=== PATIENT | male | born 1955 | race Caucasian/White ===

== ENCOUNTER 2019-06-10 05:26 | Day surgery (SDC) | payer MEDICAID ==
[2019-06-08 14:41] LABS: CLARITY,URINE CLEAR (Clear); COLOR,URINE STRAW (Yellow); GLUCOSE, URINE NEGATIVE (Neg); KETONES,URINE NEGATIVE (Neg); LEUKOCYTE ESTERASE ,URINE NEGATIVE (Neg); NITRITES, URINE NEGATIVE (Neg); OCCULT BLOOD,URINE NEGATIVE (Neg); PH,URINE 6.5 (4.8-8.0); PROTEIN,URINE NEGATIVE (Neg); UROBILINOGEN,URINE 0.2 E.U/dL (0.2-1.0)
[2019-06-08 14:43] LABS: UA COLLECTION TYPE VOIDED
[2019-06-08 14:43] LABS: BASOPHILS # (AUTO) 0.1 X10'3 (0-0.2); BASOPHILS % (AUTO) 0.9 % (0-1); EOSINOPHILS # (AUTO) 0.1 X10'3 (0-0.9); EOSINOPHILS % (AUTO) 1.7 % (0-6); LYMPHOCYTES # (AUTO) 2.1 X10'3 (1.1-4.8); LYMPHOCYTES % (AUTO) 29.6 % (21-51); MEAN CORPUSCULAR HEMOGLOBIN 29.9 PG (27.0-31.0); MEAN CORPUSCULAR HGB CONC 34.5 g/dL (33.0-36.5); MEAN CORPUSCULAR VOLUME 86.8 FL (78-98); MEAN PLATELET VOLUME 7.5 FL (7.4-10.4); MONOCYTES # (AUTO) 0.7 X10'3 (0-0.9); MONOCYTES % (AUTO) 9.4 % (2-12); NEUTROPHILS # (AUTO) 4.2 X10'3 (1.8-7.7); NEUTROPHILS % (AUTO) 58.4 % (42-75); PRE OP HEMATOCRIT 41.6 % (42.0-52.0); PRE OP HEMOGLOBIN 14.3 g/dL (14.0-17.9); PRE OP PLATELET COUNT 291 X10'3 (140-440); RED BLOOD COUNT 4.79 X10'6 (4.70-6.10); RED CELL DISTRIBUTION WIDTH 12.9 % (11.5-14.5)
[2019-06-08 14:55] LABS: ALKALINE PHOSPHATASE 67 IU/L (46-116); BLOOD UREA NITROGEN 14 MG/DL (7-18); BUN/CREATININE RATIO 16.5 (5.4-32.0); CALCIUM 9.3 MG/DL (8.5-10.1); CHLORIDE 104 MMOL/L (99-107); CREATININE 0.85 MG/DL (0.60-1.10); PRE OP ALT 31 U/L (30-65); PRE OP ANION GAP 7 (8-16); PRE OP AST 16 U/L (10-37); PRE OP BILIRUB, TOTAL 0.4 MG/DL (0.0-1.0); PRE OP GLUCOSE 103 MG/DL (70-104); PRE OP POTASSIUM 4.2 MMOL/L (3.4-5.1); PRE OP SODIUM 141 MMOL/L (135-145); TOTAL CARBON DIOXIDE 30.2 MMOL/L (24-32); TOTAL PROTEIN 7.9 G/DL (6.4-8.2); eGFR > 90 ML/MIN
[2019-06-10] VITALS (17 sets, daily range): BP systolic 120–171; BP diastolic 68–103
[~2019-06-10] VITALS: Ht 170.2 cm; Wt 78.2 kg
[~2019-06-10 05:26] MED LIST: LOSA100T57 PO; MULT-933 PO; ringers solution, lacted 1,000 ML IV SCH
[2019-06-10] MEDS ORDERED: famotidine 10mg tablet PO ONE (05:30)
[2019-06-10] MEDS ORDERED: cefazolin/dext.iso 2gm/100ml 100 ML IV ONE (05:30)
[2019-06-10] MEDS ORDERED: LIDOcaine 1% (10mg/ml) 2ml vial ONE (05:46)
[2019-06-10] MEDS ORDERED: ceFAZolin 1000mg inj ONE ×2 (06:39→08:41)
[2019-06-10] MEDS ORDERED: BUPIVAcaine/PF 2.5 mg/ml (0.25%) 30ml vial ONE (06:39)
[2019-06-10] MEDS ORDERED: bacitracin 15gm ointment TP ONE ×2 (06:40→08:41)
[2019-06-10] MEDS ORDERED: BUPIVAcaine/PF 2.5mg/ml (0.25%) 10ml vial ONE (08:41)
[2019-06-10] MEDS ORDERED: sevoflurane 250ml liquid IH ONE (09:48)
[2019-06-10] MEDS ORDERED: fentaNYL/PF 50MCG/1 ML 2ML syringe ONE ×2 (10:01→10:51)
[2019-06-10] MEDS ORDERED: midazolam 2 mg/2 ml injection ONE (10:01)
[2019-06-10] MEDS ORDERED: rocuronium 10mg/ml inj IV ONE (10:03)
[2019-06-10] MEDS ORDERED: propofol inj 20 ML IV ONE (10:08)
[2019-06-10] MEDS ORDERED: LIDOcaine 2% (20mg/ml) 5ml vial ONE (10:08)
[2019-06-10] MEDS ORDERED: ketorolac trometh. 30mg/ml inj. ONE (10:10)
[2019-06-10] MEDS ORDERED: ondansetron/PF 4mg/2ml inj ONE (10:10)
[2019-06-10] MEDS ORDERED: dexamethasone sod phosphate 4mg/ml inj. ONE (10:10)
[2019-06-10] MEDS ORDERED: ringers solution, lacted 1,000 ML IV SCH (10:22)
[2019-06-10] MEDS ORDERED: morphine 4 MG/ML inj SYRINge IV PRN ×2 (10:25)
[2019-06-10] MEDS ORDERED: meperidine/PF 25mg/ml syringe IV PRN ×3 (10:25)
[2019-06-10] MEDS ORDERED: ondansetron/PF 4mg/2ml inj IV PRN (10:25)
[2019-06-10] MEDS ORDERED: proCHLORperazine 10 MG/2 ml inj IV PRN (10:25)
[2019-06-10] MEDS ORDERED: hydrALAZINE 20mg/ml inj. IV ONE (10:52)
--- NOTE | 2019-06-10 11:14 | NUR ---
Received from OR via [facility] , accompanied by Anesthesiologist DR ASHTON and report given by Anesthesiologist. PT DROWSY, DENIES PAIN, ABDOMEN W/2 LAP SITES W/BANDAIDS CDI. Addendum: 06/10/19 at 1130 by Deb Flores RN Amended: Links added.
--- NOTE | 2019-06-10 13:54 | NUR ---
BLADDER SCANNED PT POST VOID, 0 ML OF URINE IN BLADDER, D/C INSTRUCTIONS GIVEN AND GONE OVER W/PT AND PTS DAUGHTER WHOM VERBALIZE UNDERSTANDING. PT D/CD TO HOME VIA W/C TO PRIVATE VEHICLE W/O INCIDENT. Addendum: 06/10/19 at 1406 by Deb Flores RN Amended: Links added.
== END 2019-06-10 13:54 | disposition home or self-care (01) ==
LOC: PAS 05:26
PROVIDERS: ATTEND Surgery
DX: K40.91 Unilateral inguinal hernia, without obstruction or gangrene, recurrent (principal); K40.90 Unilateral inguinal hernia, without obstruction or gangrene, not specified as recurrent; K42.9 Umbilical hernia without obstruction or gangrene; D17.6 Benign lipomatous neoplasm of spermatic cord; I10 Essential (primary) hypertension; K21.9 Gastro-esophageal reflux disease without esophagitis; M19.90 Unspecified osteoarthritis, unspecified site; E66.9 Obesity, unspecified; Z68.27 Body mass index [BMI] 27.0-27.9, adult; Z96.641 Presence of right artificial hip joint; Z98.890 Other specified postprocedural states; Z79.899 Other long term (current) drug therapy; Z72.89 Other problems related to lifestyle; Z82.49 Family history of ischemic heart disease and other diseases of the circulatory system
CPT/HCPCS: 36415; 49650; 49651; 80053; 81003; 82948; 85025; C1781; J0360; J0690; J1100; J1885; J2001; J2175; J2250; J2405; J2704; J3010; J3490; J7120; A4215; A4314; A4618; A6258; A7000

== ENCOUNTER 2022-04-27 08:02 | Day surgery (SDC) | payer MEDICARE, MEDICAID ==
[2022-04-23 12:40] LABS: BASOPHILS % (AUTO) 0.8 % (0-1); EOSINOPHILS # (AUTO) 0.1 X10'3 (0-0.9); EOSINOPHILS % (AUTO) 2.4 % (0-6); LYMPHOCYTES # (AUTO) 1.7 X10'3 (1.1-4.8); LYMPHOCYTES % (AUTO) 33.8 % (21-51); MEAN CORPUSCULAR HEMOGLOBIN 29.1 PG (27.0-31.0); MEAN CORPUSCULAR HGB CONC 33.5 g/dL (33.0-36.5); MEAN CORPUSCULAR VOLUME 86.8 FL (78-98); MEAN PLATELET VOLUME 7.4 FL (7.4-10.4); MONOCYTES # (AUTO) 0.4 X10'3 (0-0.9); MONOCYTES % (AUTO) 8.3 % (2-12); NEUTROPHILS # (AUTO) 2.7 X10'3 (1.8-7.7); NEUTROPHILS % (AUTO) 54.7 % (42-75); PRE OP HEMATOCRIT 43.5 % (42.0-52.0); PRE OP HEMOGLOBIN 14.6 g/dL (14.0-17.9); PRE OP PLATELET COUNT 234 X10'3 (140-440); RED BLOOD COUNT 5.01 X10'6 (4.70-6.10); RED CELL DISTRIBUTION WIDTH 13.3 % (11.5-14.5)
[2022-04-23 14:02] LABS: ALBUMIN 3.9 G/DL (3.4-5.0); ALBUMIN/GLOBULIN RATIO 1.1 (1.1-1.5); ALKALINE PHOSPHATASE 62 IU/L (46-116); BLOOD UREA NITROGEN 16 MG/DL (7-18); BUN/CREATININE RATIO 18.8 (5.4-32.0); CALCIUM 9.4 MG/DL (8.5-10.1); CHLORIDE 104 MMOL/L (99-107); CREATININE 0.85 MG/DL (0.60-1.10); PRE OP ALT 32 U/L (30-65); PRE OP ANION GAP 11 (8-16); PRE OP AST 24 U/L (10-37); PRE OP BILIRUB, TOTAL 0.5 MG/DL (0.0-1.0); PRE OP GLUCOSE 101 MG/DL (70-104); PRE OP POTASSIUM 4.3 MMOL/L (3.4-5.1); PRE OP SODIUM 141 MMOL/L (135-145); TOTAL CARBON DIOXIDE 26.3 MMOL/L (24-32); TOTAL PROTEIN 7.6 G/DL (6.4-8.2); eGFR 90 ML/MIN
[2022-04-27] VITALS (9 sets, daily range): BP systolic 129–154; BP diastolic 76–105
[~2022-04-27] VITALS: Ht 170.2 cm; Wt 76.7 kg
[~2022-04-27 08:02] MED LIST changes: -MULT-933 PO; +ceFAZolin inj. 2,000 MG in dextrose 5%-water 100 ML IV ONE; +famotidine 20mg tablet PO ONE
[2022-04-27] MEDS ORDERED: ringers solution, lacted 1,000 ML IV SCH (08:30)
[2022-04-27] MEDS ORDERED: hydrALAZINE 20mg/ml inj. IV PRN (08:30)
[2022-04-27] MEDS ORDERED: morphine 2 MG/ML inj. syringe IV PRN (08:30)
[2022-04-27] MEDS ORDERED: labetalol 20mg/4ml (5mg/ml) syringe IV PRN (08:30)
[2022-04-27] MEDS ORDERED: ondansetron/PF 4mg/2ml inj IV PRN (08:30)
[2022-04-27] MEDS ORDERED: morphine 4 MG/ML inj SYRINge IV PRN (08:30)
[2022-04-27] MEDS ORDERED: fentaNYL/PF 50MCG/1 ML 2ML syringe IV PRN ×2 (08:30)
[2022-04-27] MEDS ORDERED: BUPIVAcaine/PF 5 mg/ml 10ml ONE (10:18)
[2022-04-27] MEDS ORDERED: fentaNYL/PF 50MCG/1 ML 2ML syringe ONE (10:23)
[2022-04-27] MEDS ORDERED: LIDOcaine 0.5% (5mg/ml) 50ml vial ONE (10:24)
[2022-04-27] MEDS ORDERED: MIDAZolam 1 MG/ML 5ML VIAL ONE (10:24)
--- NOTE | 2022-04-27 11:15 | NUR ---
Received from OR via [facility], accompanied by Anesthesiologist YASH and report given by Anesthesiolgist. PT IS AWAKE AND ALERT, FOLLOWING COMMANDS AND ANSWERING QUESTIONS APPROPRIATELY. PT PLACED ON BEDSIDE MONITOR, VSS. PT IS BRADYCARDIC WITH HR IN HIGH 40'S- MID 50'S, MD IS AWARE AND PT STATES THIS IS NOT UNCOMMON FOR HIM. PT ON RA AND TOLERATING WITH O2 SAT > 96%. PT HAS 20G PIV TO LEFT HAND WITH LR INFUSING ORDERED. PT HAS DRSG TO RT HAND THAT IS CDI. PT DENIES PAIN AT THIS TIME AND WILL CONTINUE TO ASSESS.
--- NOTE | 2022-04-27 12:57 | NUR ---
PATIENT A&OX4, DENIES PAIN, V/S WNL, SCD OFF, 20G TO LT HAND D/C, RIGHT WRIST DRESSING CDI. ICE AND ELEVATED RUE. I HAVE REVIEWED D/C INSTRUCTIONS WITH PATIENT and they have verbalized understanding patient d/c home with all belongings and family gave transport home.
== END 2022-04-27 12:49 | disposition home or self-care (01) ==
LOC: PAS 08:02
PROVIDERS: ATTEND Orthopaedic Surgery Hand Surgery
DX: G56.01 Carpal tunnel syndrome, right upper limb (principal); M67.431 Ganglion, right wrist; I10 Essential (primary) hypertension; Z79.899 Other long term (current) drug therapy; Z98.890 Other specified postprocedural states; M19.90 Unspecified osteoarthritis, unspecified site; Z72.89 Other problems related to lifestyle
CPT/HCPCS: 25111; 36415; 64721; 80053; 82948; 85025; 93005; J0690; J2250; J3010; J3490; J7030; J7060; J7120; Z7506; Z7512; A4215